=== PATIENT | female | born 1980 | race Caucasian/White ===

== ENCOUNTER 2017-05-04 15:46 | Emergency (ER) | payer OTHER ==
[~2017-05-04] VITALS: Ht 157.5 cm; Wt 67.2 kg
[~2017-05-04 15:46] MED LIST: BACTRIM DS1 TAB PO; CIPROFLOXACN500 MG PO; FENOFIBRATE48 MG PO; FERROUS SULF325 M3 PO; FISH OIL1000 MG PO; LEVOTHYROXIN175 MC1 PO; LEVOTHYROXIN200 MC2 PO; LISINOPRIL10 MG PO; LOPID600 MG PO; SPRINTEC 2828 DAY PO; SYNTHROID175 MCG PO
[2017-05-04 16:41] LABS: HEMATOCRIT 34.2 % (37.0-47.0); HEMOGLOBIN 11.5 g/dl (12.0-16.0); IMMATURE GRANULOCYTES 0.5 % (0.0-1.0); MEAN CELL VOLUME 100.3 fL CALC (80.0-100.0); MEAN CORPUSCULAR HGB 33.7 pG CALC (26.0-32.0); MEAN CORPUSCULAR HGB CONC 33.6 g/L CALC (32.0-36.0); NEUT# 9.46 thou/uL (2.00-7.15); RED BLOOD COUNT 3.41 mill/uL (4.20-5.60); RED CELL DISTRI WIDTH 13.7 % (11.5-15.5)
[2017-05-04 16:44] LABS: URINE BILIRUBIN - DIPSTICK NEGATIVE (NEGATIVE); URINE BLOOD DIPSTICK LARGE (NEGATIVE); URINE COLOR YELLOW; URINE GLUCOSE - DIPSTICK NEGATIVE (NEGATIVE); URINE KETONE NEGATIVE (NEGATIVE); URINE PROTEIN - DIPSTICK 100 mg/dL (NEG-TRACE); URINE UROBILINOGEN - DIPSTICK 0.2 E.U./dL (0.2)
[2017-05-04 16:47] LABS: URINE CLARITY CLOUDY; URINE LEUK ESTERASE MODERATE (NEGATIVE); URINE NITRITE - DIPSTICK POSITIVE (Negative)
[2017-05-04 16:53] LABS: URINE SQUAMOUS EPITHELIAL CELL FEW EPI/hpf (0-FEW); URINE WBC 50-100 WBC/hpf (0-5)
[2017-05-04 16:58] LABS: ALBUMIN 4.3 g/dL (3.2-5.0); ALKALINE PHOSPHATASE 42 u/l (38-126); AMYLASE 35 u/l (30-110); ANION GAP 15 (6-22 (CALC)); BUN 11 mg/dL (7-17); BUN/CREATININE RATIO 17 (12-20 (CALC)); CALCIUM 9.4 mg/dL (8.4-10.2); CARBON DIOXIDE 24 mmol/l (22-30); CHLORIDE 99 mmol/l (95-108); CREATININE 0.6 mg/dL (0.5-1.0); GFR > 60 ML/MIN (>=60 (CALC)); GFR FOR AFR.AMER. > 60 ML/MIN (>=60 (CALC)); GLUCOSE 101 mg/dL (65-105); LIPASE 22 u/l (23-300); POTASSIUM 3.2 mmol/l (3.5-5.1); SGOT/AST 19 u/l (14-36); SGPT/ALT 28 u/l (9-52); SODIUM 134 mmol/l (137-146); TOTAL PROTEIN 7.7 g/dL (6.3-8.2)
[2017-05-04] MEDS ORDERED: LEVOTHYROXIN150 MCG PO (17:09)
[2017-05-04] MEDS ORDERED: BACTRIM DS1 TAB PO (17:28)
[2017-05-04] MEDS ORDERED: MOTRIN800 MG PO (17:28)
[2017-05-04] MEDS ORDERED: TRAMADOL HYDROC50 MG PO (17:28)
[2017-05-04 18:07] VITALS: BP 119/66
== END 2017-05-04 18:05 | disposition home or self-care (01) | DRG 690 ==
LOC: ED 15:46
PROVIDERS: Emergency Medicine
DX: N10 Acute pyelonephritis (principal); I10 Essential (primary) hypertension; E03.9 Hypothyroidism, unspecified; F17.210 Nicotine dependence, cigarettes, uncomplicated; B96.20 Unspecified Escherichia coli [E. coli] as the cause of diseases classified elsewhere

== ENCOUNTER 2018-05-30 13:51 | Emergency (ER) | payer OTHER ==
[~2018-05-30] VITALS: Ht 157.5 cm; Wt 70.0 kg
[~2018-05-30 13:51] MED LIST changes: +LEVOTHYROXIN150 MCG PO; +MOTRIN800 MG PO; +TRAMADOL HYDROC50 MG PO
[2018-05-30] MEDS ORDERED: BP PO (14:01)
[2018-05-30] MEDS ORDERED: [UNRECOGNIZED DRUG - REMARK] PO (14:02)
[2018-05-30] MEDS ORDERED: LISINOPRIL20 M1 PO (14:35)
[2018-05-30] MEDS ORDERED: LOPID600 MG PO (14:37)
[2018-05-30 14:47] LABS: URINE BILIRUBIN - DIPSTICK NEGATIVE (NEGATIVE); URINE BLOOD DIPSTICK TRACE-INTACT (NEGATIVE); URINE COLOR YELLOW; URINE GLUCOSE - DIPSTICK NEGATIVE (NEGATIVE); URINE KETONE NEGATIVE (NEGATIVE); URINE LEUK ESTERASE MODERATE (Negative); URINE NITRITE - DIPSTICK NEGATIVE (Negative); URINE PROTEIN - DIPSTICK TRACE mg/dL (NEG-TRACE); URINE SPECIFIC GRAVITY 1.025; URINE UROBILINOGEN - DIPSTICK 0.2 E.U./dL (0.2)
[2018-05-30 14:49] LABS: URINE CLARITY CLOUDY
[2018-05-30 14:55] LABS: URINE AMORPH SEDIMENT MANY hpf (NONE-FEW); URINE SQUAMOUS EPITHELIAL CELL MANY EPI/hpf (0-FEW)
[2018-05-30] MEDS ORDERED: PYRIDIUM200 MG PO (15:33)
[2018-05-30] MEDS ORDERED: IBUPROFEN600 MG PO (15:33)
[2018-05-30] MEDS ORDERED: KEFLEX500 M1 PO (15:33)
[2018-05-30 15:35] VITALS: BP 111/60
== END 2018-05-30 15:35 | disposition home or self-care (01) ==
LOC: ED 13:51
DX: N39.0 Urinary tract infection, site not specified (principal); M54.5 Low back pain

== ENCOUNTER → 2019-01-09 | Outpatient (REF) | payer OTHER ==
[~2019-01-09] MED LIST changes: +BP PO; +IBUPROFEN600 MG PO; +KEFLEX500 M1 PO; +LISINOPRIL20 M1 PO; +PYRIDIUM200 MG PO; +[UNRECOGNIZED DRUG - REMARK] PO
== END | disposition home or self-care (01) ==
LOC: DI 14:33
PROVIDERS: ATTEND Physician Assistant Medical
DX: M79.672 Pain in left foot (principal)

== ENCOUNTER 2019-11-30 | Emergency (ER) | payer OTHER ==
[2019-11-30] MEDS ORDERED: PRAVASTATIN20 MG PO (16:06)
[2019-11-30] MEDS ORDERED: LEVOTHYROXIN200 MCG PO (16:07)
[2019-11-30] MEDS ORDERED: CEPHALEXIN500 M1 PO (17:10)
== END 2019-11-30 17:15 | disposition home or self-care (01) ==
DX: L03.115 Cellulitis of right lower limb (principal); I10 Essential (primary) hypertension

== ENCOUNTER 2021-01-14 10:18 | Emergency (ER) | payer OTHER ==
[~2021-01-14] VITALS: Ht 157.5 cm; Wt 67.0 kg
[~2021-01-14 10:18] MED LIST changes: +CEPHALEXIN500 M1 PO; +LEVOTHYROXIN200 MCG PO; +PRAVASTATIN20 MG PO
[2021-01-14] MEDS ORDERED: TRAMADOL HYDROC50 M1 PO (12:37)
[2021-01-14] MEDS ORDERED: CEPHALEXIN500 M1 PO (12:37)
[2021-01-14 12:44] VITALS: BP 146/99
== END 2021-01-14 13:22 | disposition home or self-care (01) ==
LOC: ED 10:18
DX: L03.115 Cellulitis of right lower limb (principal); I10 Essential (primary) hypertension; E78.5 Hyperlipidemia, unspecified

== ENCOUNTER 2021-05-01 12:31 | Emergency (ER) | payer OTHER ==
[~2021-05-01] VITALS: Ht 157.5 cm; Wt 73.0 kg
[~2021-05-01 12:31] MED LIST changes: +TRAMADOL HYDROC50 M1 PO
[2021-05-01] MEDS ORDERED: KEFLEX500 MG PO (12:56)
[2021-05-01 13:25] VITALS: BP 166/86
== END 2021-05-01 13:25 | disposition home or self-care (01) ==
LOC: ED 12:31
DX: L03.115 Cellulitis of right lower limb (principal); I10 Essential (primary) hypertension; E78.5 Hyperlipidemia, unspecified; F17.290 Nicotine dependence, other tobacco product, uncomplicated

== ENCOUNTER 2024-11-28 14:32 | Emergency (ER) | payer OTHER ==
[2024-11-28] VITALS (8 sets, daily range): BP systolic 173–210; BP diastolic 104–130
[~2024-11-28] VITALS: Ht 157.5 cm; Wt 64.0 kg
[~2024-11-28 14:32] MED LIST changes: +KEFLEX500 MG PO
[2024-11-28] MEDS ORDERED: cloNIDine HCL 0.1 MG/TAB PO ONE (14:55)
[2024-11-28] MEDS ORDERED: AZELASTINE HCL0.1 % (14:56)
[2024-11-28] MEDS ORDERED: MEDDOSEPAK PO (14:56)
[2024-11-28] MEDS ORDERED: LEVOCETIRIZINE D5 MG PO (14:56)
[2024-11-28] MEDS ORDERED: CLONIDINE0.1 MG PO (15:30)
== END 2024-11-28 15:48 | disposition home or self-care (01) | DRG 153 ==
LOC: ED 14:32
DX: J32.9 Chronic sinusitis, unspecified (principal); I10 Essential (primary) hypertension; E78.5 Hyperlipidemia, unspecified; Z72.0 Tobacco use